=== PATIENT | female | born 1975 | race Caucasian/White ===

== ENCOUNTER 2017-07-16 16:10 | Emergency (ER) | payer OTHER ==
[~2017-07-16] VITALS: Ht 162.6 cm; Wt 69.9 kg
[~2017-07-16 16:10] MED LIST: CIPRO500 MG PO; FLAGYL500 MG PO; LOESTRIN1 EACH PO; NOHOMEMEDS
[2017-07-16] MEDS ORDERED: MOTRIN800 MG PO (19:19)
[2017-07-16] MEDS ORDERED: LIDODERM 5% P1 PATCH TD (19:19)
[2017-07-16] MEDS ORDERED: FLEXERIL10 MG PO (19:19)
[2017-07-16 20:08] VITALS: BP 141/88
== END 2017-07-16 20:09 | disposition home or self-care (01) ==
LOC: EME 16:10
DX: S29.012A Strain of muscle and tendon of back wall of thorax, initial encounter (principal); M62.838 Other muscle spasm; W00.0XXA Fall on same level due to ice and snow, initial encounter; Z87.442 Personal history of urinary calculi
CPT/HCPCS: 72070; 72100; 99281; 99284